=== PATIENT | male | born 1975 | race Two or more races ===

== ENCOUNTER 2024-02-07 21:33 | Emergency (ER) | payer OTHER ==
[~2024-02-07] VITALS: Ht 172.7 cm; Wt 79.8 kg
[~2024-02-07 21:33] MED LIST: HYDR-4902 PO
[2024-02-07 21:36] VITALS: O2SAT 97
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
[2024-02-07 23:38] LABS: Basophils # (auto) 0.1 10 ^3/uL (0-0.2); Basophils % (auto) 0.6 % (0.0-2.0); Eosinophils # (auto) 0.3 10 ^3/uL (0-0.8); Eosinophils % (auto) 2.7 % (0.0-7.0); Hematocrit 39.1 % (41.0-53.0); Hemoglobin 12.9 g/dL (13.5-17.5); Lymphocytes # (auto) 1.7 10 ^3/uL (0.4-5.4); Lymphocytes % (auto) 16.5 % (10.0-50.0); Mean Corpuscular Hemoglobin 29.7 pg (28.0-32.0); Mean Corpuscular Volume 90.2 fL (80.0-100.0); Monocytes # (auto) 1.1 10 ^3/uL (0-1.3); Monocytes % (auto) 10.2 % (0.0-12.0); Neutrophils # (auto) 7.3 10 ^3/uL (1.6-8.6); Platelet Count (auto) 198 10^3/uL (140-450); Red Blood Cells 4.34 10^6/uL (4.5-5.90); Red Cell Distribution Width 13.3 % (11.8-14.3); White Blood Cell 10.5 10^3/uL (4.4-10.8)
[2024-02-07 23:43] LABS: Chloride 109 mmol/L (98-107); Potassium 4.2 mmol/L (3.5-5.1); Sodium 143 mmol/L (136-145)
[2024-02-07 23:44] LABS: Anion Gap 6 (5-15); Calcium 9.6 mg/dL (8.7-10.4); Carbon Dioxide 28 mmol/L (20-31)
[2024-02-07 23:49] LABS: BUN/Creatinine Ratio 9.4 (10.0-20.0); Blood Urea Nitrogen 13 mg/dL (9-23); Glucose 97 mg/dL (74-106)
--- NOTE | 2024-02-08 00:03 | DVH ---
XY CHEST TWO VIEWS ROUTINE CLINICAL HISTORY: chest pain COMPARISON: None TECHNIQUE: Frontal and lateral view of the chest was obtained FINDINGS: Lines and Tubes: None Lungs: No focal consolidation. Pleura: No effusion. No pneumothorax. Cardiomediastinal contours: Unremarkable Bones: No acute osseous abnormality. IMPRESSION: No acute cardiopulmonary disease.
[2024-02-08 01:45] VITALS: BP 129/85; PULSE 74; RESP 18; TEMP 99.2
--- NOTE | 2024-02-11 08:14 | ECG ---
[facility] Test Date: 2024-02-07 Test Time: 21:37:38 Pat Name: SHIRA DANIELLE Department: ER Room: Gender: M Director Validation: : 1975 Requested By: DAMIEN AVINA Order Number: [id number] Reading MD: Measurements Intervals [place] Rate: 90 P: 57 PA: 166 QRS: 10 QRSD: 93 T: -2 QT: 337 QTc: 413 Interpretive Statements Sinus rhythm RSR' in V1 or V2, right VCD or RVH ST elev, probable normal early repol pattern Please click the below link to view image of tracing.
--- NOTE | 2024-02-11 08:15 | ECG ---
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
--- NOTE | 2024-02-11 08:16 | ECG ---
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
== END 2024-02-08 02:14 | disposition left against medical advice (07) ==
LOC: ER 21:33
DX: R07.89 Other chest pain (principal); F17.210 Nicotine dependence, cigarettes, uncomplicated; R06.02 Shortness of breath; M25.511 Pain in right shoulder
CPT/HCPCS: 36415; 71046; 80048; 84484; 85025; 93005